=== PATIENT | female | born 1975 | race Caucasian/White ===

== ENCOUNTER 2018-12-01 19:49 | Emergency (ER) | payer SELFPAY ==
[~2018-12-01] VITALS: Ht 160 cm; Wt 84.1 kg
[2018-12-02] MEDS ORDERED: HYDROCODONE/ACETAMINOPHEN 5-325 MG TABLET PO ONE (02:00)
[2018-12-02] MEDS ORDERED: SULFAMETHOX/TRIMETH DS 800-160 MG/TABLET PO ONE (02:00)
[2018-12-02] MEDS ORDERED: LIDOCAINE 1% 10 ML VIAL INJ ONE (02:00)
[2018-12-02] MEDS ORDERED: CEPHALEXIN MONOHYDRATE 500 MG CAPSULE PO ONE (02:00)
[2018-12-02 03:44] VITALS: BP 152/90
== END 2018-12-02 04:06 | disposition left against medical advice (07) ==
LOC: EMS 19:50
DX: N61.1 Abscess of the breast and nipple (principal); F17.210 Nicotine dependence, cigarettes, uncomplicated
CPT/HCPCS: 99284; J3490